=== PATIENT | female | born 1970 | race African-American/Black ===

== ENCOUNTER 2016-12-27 00:40 | Emergency (ER) ==
--- NOTE | 2016-12-27 00:58 | PROVIDER DOCUMENTATION ---
HPI-Headache - General Source: patient - History of Present Illness-Headache Headache Location: reports: temporal Quality of Pain: reports: aching Severity: reports: moderate Onset/Duration: reports: 1 week ago Timing: reports: still present, getting worse Headache Context: reports: nothing Headache History: reports: occasional headaches. denies: frequent headaches, chronic headaches, head trauma < 24 hrs ago, head trauma > 24 hrs ago, history of migraines, other Any recent trauma/injury?: reports: none Headache severity at the maximum: moderate Preceding Symptoms: denies: visual disturbances, scotoma, aura(s), typical of previous aura(s), none Headache Exacerbated by:: reports: light. denies: nothing, noise, movement, position, other Modifying Factors: improves with: nothing Associated Symptoms: reports: denies symptoms. denies: short of breath, headache, decreased ability to walk or stand, fainting, dizziness, confusion, chest pain, neck/back pain, fatigue, fever/chills, insomnia, loss of consciousness, muscle spasms, nausea, numbness in legs/feet, paresthesia, diaphoretic, ringing in ears, seizures, sleepy, slurred speech, tingling in legs /feet, trouble walking, vomiting, vision changes, weakness, other Similar Symptoms Previously?: No Recently seen or treated by another doctor?: No <Alex Arreola - Last Filed: 12/27/16 00:53> <Andrea Tipton - Last Filed: 12/27/16 01:37> - General Source: patient <Valentino Montalvo - Last Filed: 12/27/16 02:12> - General Chief Complaint: Headache Stated Complaint: BOND Time Seen by Provider: 12/27/16 00:53 Allergies/Adverse Reactions: Patient Allergies Allergy/AdvReac Type Severity Reaction Status Date / Time No Known Allergies Allergy Verified 12/27/16 00:51 Home Medications: Home Medication List Medication Instructions Recorded Confirmed Last Taken Type Esomeprazole [Nexium] 40 mg PO QAM 09/09/16 12/27/16 12/26/16 History Ferrous Sulfate [Feosol] 325 mg PO QAM 09/09/16 12/27/16 12/26/16 08:00 History Lisinopril/Hydrochlorothiazide 1 each PO BID 11/12/27/16 12/26/16 08:00 History [Lisinopril-Hctz 20-25 mg Tab] Metoprolol [Lopressor] 50 mg PO BID 09/09/16 12/27/16 12/26/16 08:00 History Potassium Chloride 10 meq PO QAM 09/09/16 12/27/16 12/26/16 08:00 History Tramadol [Ultram] 50 mg PO TID #30 tablet 12/27/16 Unknown Rx - History of Present Illness-Headache Nature of Presenting Problem: Pt c/o headache x 1 week. Pain got worse tonight. No history of migraines. Photosensitivity. Denies any nausea or vomiting. Pain in left temporal area. (Alex Arreola) Review of Systems - Adult - REVIEW OF SYSTEMS - ADULT Constitutional: reports: see HPI. denies: no symptoms reported, chills, fever, fatique, night sweats, weight gain, weight loss, other Eyes: reports: no symptoms reported. denies: see HPI, discharge, dry eyes, decreased vision, blurred vision, double vision, eye pain, redness, other Ears, Nose, Mouth & Throat: reports: no symptoms reported. denies: see HPI, ear discharge, ear pain, hearing loss, tinnitus, epistaxis, sinus problem, nose pain, loose teeth, mouth/dental pain, mouth swelling, hoarseness, throat pain, throat swelling, other Cardiovascular: reports: no symptoms reported. denies: see HPI, chest pain, edema, heart murmur, irregular heart rate, orthopnea, palpitations, poor circulation, PND, syncope, other Respiratory: reports: no symptoms reported. denies: see HPI, chronic cough, cough, dyspnea on exertion, excessive sputum production, hemoptysis, pleurisy, shortness of breath, wheezing, other Gastrointestinal: reports: no symptoms reported. denies: see HPI, abdominal pain, hematemesis, constipation, diarrhea, difficulty swallowing, frequent heartburn, nausea, poor appetite, rectal bleeding, vomiting, other Genitourinary: reports: no symptoms reported. denies: see HPI, dysuria, discharge, frequency, flank pain, frequent UTI's, hematuria, hesitency, incontinence, urinary retention, urgency, other Musculoskeletal: reports: no symptoms reported. denies: see HPI, bone pain, back pain, frequent leg cramps, joint pain, joint swelling, muscle aches, muscle weakness, neck pain, other Integumentary: reports: no symptoms reported. denies: see HPI, hives, hair loss , itching, mole changes, nail changes, rash, skin sores/ulcer, skin thickening, other Neurological: reports: see HPI, headache/migraines. denies: no symptoms reported, ataxia, dizziness/vertigo, loss of balance, numbness, paresthesia, seizure, slurred speech, syncope, tremors, other Psychiatric: reports: no symptoms reported. denies: see HPI, anxiety, anti- depressant use, alcohol/drug dependence, depression, emotional problems, insomnia, panic attacks, suicidal thoughts, other All Other Systems: Reviewed and Negative <Alex Arreola - Last Filed: 12/27/16 00:53> Past History - Adult - PAST MEDICAL HISTORY-ADULT Review of Records: reports: Old Records Reviewed, Nursing Assessment Review, Medications Reviewed, Social history reviewed & non-contributory. Major Childhood Illnesses: reports: denies history Cardiovascular: reports: HTN Respiratory: reports: denies history Gastrointestinal: reports: GERD Obstetrical/Gynecological: reports: denies history Genitourinary: reports: denies history Musculoskeletal: reports: denies history Neurological: reports: denies history Psychiatric: reports: denies history Endocrine/Immune: reports: denies history Other Conditions: reports: denies history - PRIOR SURGERIES/PROCEDURES Surgical/Procedure History: reports: cholecystectomy, - IMMUNIZATION STATUS Childhood Immunizations: See Nurse Assessment Flu Vaccine: See Nurse Assessment - FAMILY HISTORY Family History: CAD under 55yo (mother in her 40s) <Alex Arreola - Last Filed: 12/27/16 00:53> Physical Exam- Neurological - Physical Exam-Neuro Initial Vital Signs Reviewed: Yes General Appearance: appears well, alert, no apparent distress. negative: mild distress, moderate distress, severe distress, cachetic, obese, thin, anxious, lethargic, slow to respond, obtunded, combative, other Eye Exam: bilateral eye: normal inspection, PERRL, EOMI HENMT: normocephalic/atraumatic, moist mucous membranes, normal ENT inspection, TMs normal, pharynx normal. negative: angioedema, dental decay, hearing deficit , pharyngeal erythema, tonsillar exudate, TM abnormal, TM obscurred by cerumen, frontal tenderness, maxillary tenderness, other Head Injury: no evidence of injury. negative: active bleeding, Cuenca's Sign, contusions, ecchymosis, flap, lacerations, raccoon eyes, swelling, tenderness, other Neck: non-tender, full range of motion, supple, normal inspection. negative: Brudzinski's sign, carotid bruit, C-spine tenderness, limited range of motion, lymphadenopathy, meningismus, trachial deviation, tender lateral, tender midline , thyromegaly, other Respiratory: chest non-tender, lungs clear, normal breath sounds, no pleuratic chest pain, no respiratory distress, no accessory muscle use. negative: respiratory distress, decreased breath sounds, accessory muscle use, crackles, rales, rhonchi, stridor, wheezing, dull on percussion, prolonged expiration, pain on inspiration, plerual rub, retractions, splinting, decreased rate, increased rate, crepitus, other Cardiovascular: normal peripheral pulses, regular rate, rhythm, no edema, no gallop, no JVD, no murmur. negative: JVD, bradycardia, tachycardia, diastolic murmur, systolic murmur, gallop/S3, gallop/S4, extra beats, friction rub, irregularly irregular, PMI displaced laterally, other Abdominal Exam: normal bowel sounds, non tender, soft, no organomegaly, no pulsatile mass. negative: abdominal bruit, abnormal bowel sounds, distended, guarding, rigid, rebound, tenderness, hernia, mass, hepatomegaly, spleenomegaly , McBurney's point tenderness, Walker's sign, obturator sign, prominent aortic pulsations, psoas, Rovsing's sign, other Lymphatic: no adenopathy. negative: axilla node tender, cervical node tenderness, inguinal node tender, enlargement, striations, streaking, other Extremity: normal range of motion, non-tender, normal gait, normal inspection, no pedal edema, no calf tenderness, normal capillary refill. negative: pelvis stable, abnormal NV exam, calf tenderness, deformity, erythema, inflammation, joint effusion, pulse deficit, pedal edema, slow capillary refill, swelling, tenderness, other carpenters helper Exam: normal hearing, normal speech, PERRL. negative: abnormal eye position , abnormal gag reflex, abnormal pupil position, abnormal speech, facial asymmetry, facial droop, facial paresthesias, facial weakness, gaze palsy, hearing deficit (R), hearing deficit (L), tongue deviation to R, tongue deviation to L, other Coordination/Gait: normal finger to nose, normal gait. negative: negative Romberg's sign, positive Romberg's sign, abnormal gait, ABN nose to finger (R), ABN nose to finger (L), other Motor/Sensory: no motor deficit, no sensory deficit, no pronator drift, negative Babinski's sign. negative: positive Babinski's sign, pronator drift (R ), pronator drift (L), sensory deficit, weak motor strength RUE, weak motor strength LUE, weak motor strength RLE, weak motor strength LLE, other Neurologic: grossly normal Integumentary: normal color, normal turgor, warm/dry Psych/Mental Status: normal mood/affect, normal thought content, normal thought process, oriented x 3 - Glascow Coma Scale Best Eye Response: (4) open spontaneously Best Verbal Response: (5) oriented Best Motor Response: (6) obeys commands Total Glascow Score: 15 <Alex Arreola - Last Filed: 12/27/16 00:53> Progress - CHANGE OF SHIFT REPORT (ED Provider) Report Given and Care Transferred to:: Dr. Tipton Time of Transfer: 00:57 Tentative Impression of Patient: Migraine <Alex Arreola - Last Filed: 12/27/16 00:53> - EKG 1 Time of EKG reading by physician:: 01:33 EKG Read and Signed by:: Andrea Tipton EKG Interpretation (*Must complete 3 of following elements*): Abnormal Rate: 81 Rhythm: NSR [place]: normal QRS: normal [place] Interval: normal ST Wave: normal Comments: POSSIBLE LEFT ATRIAL ENLARGEMENT. CANNOT RULE OUT ANTERIOR INFARCT. - CT/MRI 1 CT Study: Head CT Results: negative <Valentino Montalvo - Last Filed: 12/27/16 02:12> Departure <Alex Arreola - Last Filed: 12/27/16 00:53> - Departure Time of Disposition Order: 01:50 Certified Medical Emergency: Emergent <Andrea Tipton - Last Filed: 12/27/16 01:37> - Departure Time of Disposition Order: 02:12 Certified Medical Emergency: Emergent <Valentino Montalvo - Last Filed: 12/27/16 02:12> - Departure DIAGNOSIS: HTN (hypertension) with goal to be determined Headache Qualifiers: Headache type: unspecified Headache chronicity pattern: acute headache Intractability: not intractable Qualified Code(s): R51 - Headache Disposition: HOME 01 Condition: Stable Additional Instructions: ED Follow Up Instructions: You have been treated by a care provider in the Emergency Department. These instructions are being provided to you so you can have an understanding of how to care for yourself upon discharge. Upon discharge from the Emergency Department, you are responsible for making arrangements for follow-up care by a physician of your choice. Take all prescribed medications as directed. Return to the Emergency Department immediately for any new or worsening symptoms. You may call the Physician Referral phone number at [phone] to obtain a list of Physicians who are taking new patients. Prescriptions: Tramadol [Ultram] 50 mg PO TID #30 tablet Referrals: [Primary Care Provider] - Forms: Return to School/Parent Work Instructions: Migraine Headache, [id number], Hypertension, [id number] Attestation - Physician/ DANAE Attestation Patient care was provided by Advanced Practice Provider:: Yes Advanced Practice Provider:: Alex Arreola Advanced Practice Provider documentation review:: The Mid-level provider documentation, treatment plan and medical decision making was reviewed by the physician who agrees with all treatment and medical decision making by the MLP. <Alex Arreola - Last Filed: 12/27/16 00:53> Physician Attestation
[2016-12-27] MEDS ORDERED: CATAPRES PO ONE (01:19)
[2016-12-27] MEDS ORDERED: PERCOCET-10 PO ONE (01:19)
[2016-12-27] MEDS ORDERED: ZOFRAN ODT PO ONE (01:19)
[2016-12-27] MEDS ORDERED: TYLENOL PO ONE (01:46)
[2016-12-27 02:21] VITALS: BP 158/86
--- NOTE | 2016-12-27 06:03 | EKG Report ---
Test Performed on : 12/27/2016 01:32:15 AM Test Reason : CP Blood Pressure : / mmHG Vent. Rate : 081 BPM Atrial Rate : 081 BPM P-R Int : 170 ms QRS Dur : 088 ms QT Int : 384 ms P-R-T Axes : 050 018 041 degrees QTc Int : 446 ms Normal sinus rhythm. Possible Left atrial enlargement Cannot rule out Anterior infarct , age undetermined Abnormal ECG When compared with ECG of 06-JUL-2015 01:17, No significant change was found Unconfirmed Result
--- NOTE | 2016-12-27 06:27 | Diag Imaging Result Document ---
PROCEDURE NAME: HEAD W/O CONTRAST - 12/27/2016 CT BRAIN WITHOUT CONTRAST. DOSE REDUCTION PROTOCOL. COMPARISON: 07/07/2011. FINDINGS: No parenchymal hemorrhage. No epidural or subdural hematoma. No subarachnoid hemorrhage. No mass identified on this noncontrasted exam. No hydrocephalus. No sinus opacification. No air fluid levels. IMPRESSION: No hemorrhage. No injury. A preliminary report was given at 2:06 a.m..
== END 2016-12-27 02:19 | disposition home or self-care (01) ==
LOC: ED 00:40
DX: R51 Headache (principal); I10 Essential (primary) hypertension; R94.31 Abnormal electrocardiogram [ECG] [EKG]; K21.9 Gastro-esophageal reflux disease without esophagitis; Z79.899 Other long term (current) drug therapy
CPT/HCPCS: 70450; 82948; 93005

== ENCOUNTER 2017-06-11 08:49 | Observation (INO) ==
[2017-06-11 09:34] LABS: BASO% 0.3 % (0.0-0.8); EOS# 0.02 X1000 (0.0-0.7); EOS% 0.3 % (0.0-10.0); HEMATOCRIT 36.2 % (37.0-47.0); HEMOGLOBIN 12.7 g/dL (12.0-16.0); IMM GRAN# 0.03 X1000 (0.0-0.04); IMM GRAN% 0.4 % (0.0-0.5); LYMPH# 1.64 X1000 (1.2-3.4); LYMPH% 20.8 % (20.5-51.1); MANUAL DIFF NEEDED? NO; MCH 26.2 PG (27-31); MCHC 35.1 g/dL (33-37); MCV 74.6 FL (81-99); MONO# 0.52 X1000 (0.11-0.59); MONO% 6.6 % (1.7-9.3); MPV 9.2 FL (7.4-10.4); NEUT% 71.6 % (42.2-75.2); PLT 308 X1000 (130-400); RBC 4.85 XMIL (4.2-5.4)
[2017-06-11 09:55] LABS: AGAP 17; ALBUMIN 3.7 g/dL (3.5-5.0); ALKALINE PHOSPHATASE 85 U/L (32-104); AMYLASE 39 U/L (20-200); BUN 8 mg/dL (8-22); CALCIUM 9.4 mg/dL (8.8-10.2); CHLORIDE 100 mmol/L (98-107); COSMO 286; GOT 16 U/L (10-30); GPT 13 U/L (10-36); LIPASE 20 U/L (13-60); POTASSIUM 3.5 mmol/L (3.5-5.1); SODIUM 142 mmol/L (136-145); TCO2 25 mmol/L (25-35); TOTAL BILIRUBIN 0.56 mg/dL (0.20-1.00); TOTAL PROTEIN 7.1 g/dL (6.3-8.3)
[2017-06-11] MEDS ORDERED: ZOFRAN IV ONE ×3 (11:44→17:01)
--- NOTE | 2017-06-11 11:47 | PROVIDER DOCUMENTATION ---
HPI-Abdominal Pain/GI Problem - General Chief Complaint: Abdominal Pain Stated Complaint: PAINS IN HER LEFT SIDE Time Seen by Provider: 06/11/17 11:43 Source: patient Allergies/Adverse Reactions: Patient Allergies Allergy/AdvReac Type Severity Reaction Status Date / Time No Known Allergies Allergy Verified 06/11/17 15:31 Home Medications: Home Medication List Medication Instructions Recorded Confirmed Last Taken Type Esomeprazole [Nexium] 40 mg PO QAM 09/09/16 06/11/17 06/10/17 History Ferrous Sulfate [Feosol] 325 mg PO QAM 09/09/16 06/11/17 06/10/17 History Lisinopril/Hydrochlorothiazide 1 each PO BID 09/09/16 06/11/17 06/10/17 History [Lisinopril-Hctz 20-25 mg Tab] Metoprolol [Lopressor] 50 mg PO BID 09/09/16 06/11/17 06/10/17 History Potassium Chloride 20 meq PO QAM 09/09/16 06/11/17 06/10/17 History - History of Present Illness-ABD Nature of Presenting Problems: Patient presents complaining of achy non-radiating LLQ abd pain associated with nausea and vomiting. no diarrhea, fever, melana, vaginal discharge. Onset/Duration: reports: 24 hours ago Timing: reports: still present Activities at Onset: reports: none Exposure to sick contacts?: No Modifying Factors: improves with: nothing Associated Symptoms: reports: nausea, vomiting. denies: anxiety, chest pain, cough, diarrhea, fatigue, headaches, malaise, rash, shortness of breath, syncope , trouble walking Last BM: unsure Dark Stools Present?: reports: none noticed Rectal Bleeding: reports: none Rectal Pain: reports: none Bruising or Bleeding Gums?: No Similar Symptoms Previously?: No Recently seen or treated by another doctor?: No Review of Systems - Adult - REVIEW OF SYSTEMS - ADULT Constitutional: reports: no symptoms reported Eyes: reports: no symptoms reported Ears, Nose, Mouth & Throat: reports: no symptoms reported Cardiovascular: reports: no symptoms reported Respiratory: reports: no symptoms reported Gastrointestinal: reports: see HPI Genitourinary: reports: no symptoms reported Musculoskeletal: reports: no symptoms reported Integumentary: reports: no symptoms reported Neurological: reports: no symptoms reported Psychiatric: reports: no symptoms reported Endocrine: reports: no symptoms reported Hematologic/Lymphatic: reports: no symptoms reported Allergic/Immunologic: reports: no symptoms reported All Other Systems: Reviewed and Negative Past History - Adult - PAST MEDICAL HISTORY-ADULT Review of Records: reports: Old Records Reviewed, Nursing Assessment Review, Medications Reviewed, Social history reviewed & non-contributory. Major Childhood Illnesses: reports: denies history Cardiovascular: reports: HTN Respiratory: reports: asthma Gastrointestinal: reports: GERD Obstetrical/Gynecological: reports: denies history Genitourinary: reports: denies history Musculoskeletal: reports: denies history Neurological: reports: CVA Psychiatric: reports: denies history Endocrine/Immune: reports: denies history Other Conditions: reports: denies history - PRIOR SURGERIES/PROCEDURES Surgical/Procedure History: reports: cholecystectomy, - IMMUNIZATION STATUS Childhood Immunizations: See Nurse Assessment Flu Vaccine: See Nurse Assessment - FAMILY HISTORY Family History: CAD under 55yo (mother in her 40s) - SOCIAL HISTORY Smoking: denies Substance Use: none/never Alcohol Use Frequency: never Living Situation: family Physical Exam-General - PHYSICAL EXAM-ADULT Initial Vital Signs Reviewed: Yes - CONSTITUTIONAL General Appearance: appears well, alert, no apparent distress - EYES Eyes: PERRL/EOMI, pink conjunctivae - HEAD, EARS, NOSE, MOUTH & THROAT HENMT: normocephalic/atraumatic - NECK Neck: supple - RESPIRATORY Respiratory: lungs clear, normal breath sounds - CARDIOVASCULAR Cardiovascular: normal peripheral pulses, regular rate, rhythm - GASTROINTESTINAL (ABDOMEN) Abdominal Exam: normal bowel sounds, soft, tenderness (LLQ. no guarding) - MUSCULOSKELETAL Back Exam: normal inspection Extremity: normal gait - SKIN Integumentary: normal color, normal turgor, warm/dry - NEUROLOGIC Neurologic: grossly normal - PSYCHIATRIC Psych/Mental Status: normal mood/affect, oriented x 3 Progress - PLAN OF CARE/RESULTS Progress/Plan/Lab Results: Vital Signs - 8 hr 06/11/17 09:06 Temperature 98 F Pulse Rate 78 Respiratory Rate 16 Blood Pressure 148/101 O2 Sat by Pulse Oximetry 99 Laboratory Results - last 24 hr 06/11/17 06/11/17 09:19 09:19 WBC 7.87 RBC 4.85 Hgb 12.7 Hct 36.2 L MCV 74.6 L MCH 26.2 L MCHC 35.1 RDW Std Deviation 16.3 H Plt Count 308 MPV 9.2 Immature Gran % (Auto) 0.4 Neut % (Auto) 71.6 Lymph % (Auto) 20.8 [place] % (Auto) 6.6 Eos % (Auto) 0.3 Baso % (Auto) 0.3 Immature Gran # (Auto) 0.03 Neut # (Auto) 5.64 Lymph # (Auto) 1.64 [place] # (Auto) 0.52 Eos # (Auto) 0.02 Baso # (Auto) 0.02 Sodium 142 Potassium 3.5 Chloride 100 Carbon Dioxide 25 Anion Gap 17 BUN 8 Creatinine 0.7 Estimated GFR/1.73 m2 > 60 BUN/Creatinine Ratio 11 Glucose 177 H Calculated Osmolality 286 Calcium 9.4 Total Bilirubin 0.56 AST 16 ALT 13 Alkaline Phosphatase 85 Total Protein 7.1 Albumin 3.7 Globulin 3.4 Albumin/Globulin Ratio 1.1 Amylase 39 Lipase 20 Orders Category Date Time Status Saline Loc NOW Care 06/11/17 11:[address] ABDOMEN/PELVIS W/O CONTRAST [CT] Stat Exams 06/11/17 11:44 Ordered AMYLASE [CHEM] Stat Lab 06/11/17 09:19 Completed CBC WITH ELECTRONIC DIFF [HEME] Stat Lab 06/11/17 09:19 Completed COMPREHENSIVE METABOLIC PANEL [CHEM] Stat Lab 06/11/17 09:19 Completed LIPASE [CHEM] Stat Lab 06/11/17 09:19 Completed TEST-SERUM [PREG] Stat Lab 06/11/17 11:44 Uncollected UA NIMS W/REFLEX CULT [URINALYSIS] Stat Lab 06/11/17 09:13 Uncollected Ondansetron [Zofran] Med 06/11/17 11:44 Discontinued 4 mg IV NOW ONE Result Diagrams: 06/11/17 09:19 06/11/17 09:19 - REASSESSMENT Reassessment #1 Time Reassessed: 17:00 Status: improving (pt feeling better. Will admit to Dr. 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 The possibility of torsion of the left ovary cannot be excluded. No evidence of obstructive uropathy or urolithiasis.) - ULTRASOUND (By Radiology) 1 US Study: Pelvic Impression: See EMR Report (IMPRESSION: Fibroid uterus. Large heterogeneous mass arising from the left adnexal region extending into the abdomen, this is actually much better defined on the CT than the ultrasound. This is consistent with a dermoid teratoma. The lack of internal color Doppler flow would support diagnosis of a torsed left ovarian mass. This possibility has been discussed by telephone with Dr. Taylor.) - CONSULTS/PCP/HOSPITALIST Notification #1 *Consult/PCP/Hospitalist*: Dr. Tim Time Discussed: 16:45 Consult Disposition: other (Does not see senior operations analyst. Call motor vehicle emissions inspector senior operations analyst.) #2 Consult: Dr. Daley Time Discussed: 16:57 Consult Disposition: Admit (admit to [facility]) Departure - Departure Date of Disposition Decision: 06/11/17 Time of Disposition Decision: 16:57 DIAGNOSIS: Ovarian mass, left UTI (urinary tract infection) Qualifiers: Urinary tract infection type: site unspecified Hematuria presence: with hematuria Qualified Code(s): N39.0 - Urinary tract infection, site not specified ; R31.9 - Hematuria, unspecified Disposition: ADMITTED INPATIENT 09 Certified Medical Emergency: Emergent Condition: Stable Referrals and Follow-Ups: None,PCP [Primary Care Provider] - - Critical Care Note This patient required my direct & personal management of CC.: No Attestation - Physician/ DANAE Attestation Patient care was provided by Advanced Practice Provider:: Yes Advanced Practice Provider:: Tyrese Byrd Advanced Practice Provider documentation review:: The Mid-level provider documentation, treatment plan and medical decision making was reviewed by the physician who agrees with all treatment and medical decision making by the [facility]. The physician spent face to face time with patient:: No Advanced Practice Provider documentation review:: Supervising physician onsite and consulted in the evaluation and care of this patient. The physician did not have a face to face encounter with the patient.
--- NOTE | 2017-06-11 13:39 | Diag Imaging Result Doc PS360 ---
EXAM: CT ABDOMEN/PELVIS W/O CONTRAST HISTORY: LLQ abd pain, n/v TECHNIQUE: CT urogram without contrast with dose reduction (clarity.) COMMENT: There are patchy atelectatic appearing opacities throughout the lung bases. This is somewhat worse than on the previous examination of 03/03/2013, however the inspiratory effort appears to be less on the current study. There is no evidence of hydronephrosis or nephrolithiasis. There has been cholecystectomy. The appendix is normal in appearance. There is a large heterogeneous mass apparently arising from the left ovary extending into the abdomen with apparent fatty and dental elements consistent with a dermoid teratoma. This has increased in size from over 9.2 cm at the time the previous examination to over 12.2 cm currently. The larger superior moiety of this mass appears to contain more fluid density than on the previous examination. Given its large size, possibility that this lesion has torsed the ovary should be considered. There is diverticulosis particularly in the descending colon. There is no evidence of active diverticulitis. There is a fairly large amount of stool present in the rectum. No free fluid is present. Some calcifications are present in the right ovary. There is also an area of relative decreased attenuation in the right ovary but this is actually smaller than on the previous study. The small bowel is not distended. 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 The possibility of torsion of the left ovary cannot be excluded. No evidence of obstructive uropathy or urolithiasis. Electronically signed by Brett Guerrero 06/11/2017 1:37 PM
[2017-06-11 15:01] LABS: URINE SOURCE CLEAN CATCH
[2017-06-11 15:05] LABS: BILIRUBIN URINE NEGATIVE (NEGATIVE); BLOOD URINE NEGATIVE (NEGATIVE); COLOR ORANGE; GLUCOSE URINE NEGATIVE (NEGATIVE); LEUKOCYTES URINE TRACE (NEGATIVE); NITRITE URINE NEGATIVE (NEGATIVE); PH URINE 5.5; PROTEIN URINE 70 mg/dL (NEGATIVE); SP GRAVITY URINE 1.024; TURBIDITY URINE TURBID (CLEAR); URINE MICRO REVIEW NEEDED? YES; UROBILINOGEN URINE 2 mg/dL (NORMAL)
[2017-06-11 15:08] LABS: UR EPITHELIAL CELLS <10 /HPF (<10); URINE RBC <10 /HPF (<10); URINE WBC TNTC /HPF (<10)
[2017-06-11 15:16] LABS: URINE CULTURE NEEDED? YES
[2017-06-11 15:17] LABS: URINE CASTS NONE SEEN; URINE CRYSTALS NONE SEEN; URINE SMALL ROUND CELLS NONE SEEN
[2017-06-11 15:23] LABS: URINE BACTERIA 4+ /HPF
--- NOTE | 2017-06-11 15:31 | Diag Imaging Result Doc PS360 ---
EXAM: US PELVIC NON-SCREENING UNIT REGISTERED NURSE COMPLETE HISTORY: LLQ pain, abnormal CT TECHNIQUE: Pelvic ultrasound transabdominal and endovaginal scan COMMENT: The uterus is bulky in appearance with inhomogeneous echotexture and loss of the normal endometrial stripe in the fundus. It measures in total 10.9 x 7.1 x 5.5 cm with a 3 mm endometrial stripe. There is a 3.9 x 3.2 x 2.7 cm myometrial mass posteriorly in the fundus. The right ovary is not well demonstrated measuring 3.7 cm in one dimension. The left ovary is not identified. There is a mass present extending into the abdomen which is only visible on the transabdominal images measuring 15.8 x 17.1 x 9.7 cm with a complex echo pattern. No internal color Doppler flow is demonstrated. There is a tiny amount of free fluid in the cul-de-sac. Compared to the previous study of 12/24/2016 the appearance of the uterus has not changed significantly. IMPRESSION: Fibroid uterus. Large heterogeneous mass arising from the left adnexal region extending into the abdomen, this is actually much better defined on the CT than the ultrasound. This is consistent with a dermoid teratoma. The lack of internal color Doppler flow would support diagnosis of a torsed left ovarian mass. This possibility has been discussed by telephone with Dr. Taylor. Electronically signed by Brett Guerrero 06/11/2017 3:29 PM
[2017-06-11] MEDS ORDERED: DILAUDID IV ONE ×2 (15:56→16:15)
[2017-06-11] MEDS ORDERED: ZOFRAN ONE (15:56)
[2017-06-11] MEDS ORDERED: ROCEPHIN 1 GM in NS 50 ML IV ONE (16:05)
[2017-06-11] MEDS ORDERED: MORPHINE IV PRN (16:59)
[2017-06-11] MEDS ORDERED: NS 1,000 ML IV ONE (16:59)
[2017-06-11] MEDS ORDERED: ZOFRAN IV PRN (16:59)
[2017-06-11] MEDS ORDERED: PHENERGAN IV PRN (20:39)
[2017-06-11] MEDS ORDERED: SODIUM CHLORIDE 0.9% INJ PRN (20:39)
[2017-06-11] MEDS ORDERED: LOPRESSOR PO ONE (20:40)
[2017-06-11] MEDS ORDERED: HYDROCHLOROTHIAZIDE PO ONE (20:41)
[2017-06-11] MEDS ORDERED: PRINIVIL PO ONE (20:41)
[2017-06-11] MEDS ORDERED: SODIUM CHLORIDE 0.9% INJ SCH (21:00)
[2017-06-11] MEDS ORDERED: PROTONIX IV SCH (21:00)
[2017-06-11] MEDS: D5 1/2 NS 1,000 ML IV SCH (21:15)
[2017-06-11] MEDS: DILAUDID IV PRN (21:15)
--- NOTE | 2017-06-11 21:19 | HISTORY AND PHYSICAL ---
HISTORY OF PRESENT ILLNESS: Patient is a 47-year-old, 3, para 2-0-1-2 who presented to the emergency room with complaints of abdominal pain that started this morning. She states the abdominal pain initially started on the left side and then has been radiating throughout the abdomen. She also reports associated nausea and emesis. The patient gives a history of Depo- Provera use for abnormal uterine bleeding with discontinuation in January due to hypertension. She was subsequently started on a p.o. contraception with control of abnormal uterine bleeding; however, the patient unaware as to what medication she was started on. She does report having an in-office endometrial biopsy at her primary [facility] that returned normal. In the emergency room, patient underwent evaluation that was significant for a 14-cm left pelvic mass with concern for possible torsion and no other significant findings. PAST MEDICAL HISTORY: Hypertension. Patient reports history of stroke approximately 5-6 years ago. PAST SURGICAL HISTORY: section x2 and laparoscopic cholecystectomy. OB HISTORY: Term x2. SAB x1. [facility] HISTORY: As above. She reports normal Pap smear in 2017. No history of dysplasia. SOCIAL HISTORY: No tobacco use. PHYSICAL EXAMINATION: VITAL SIGNS: Afebrile, vital signs stable. LUNGS: Respirations nonlabored. ABDOMEN: Soft, nontender and nondistended. EXTREMITIES: Nontender to palpation. IMAGING: CT significant for 14-cm pelvic mass appearing to arise from the left adnexum. Transvaginal ultrasound with limited Doppler flow to the left adnexal. However, ovary unable to be visualized. White blood cells within normal limits. Hematocrit 36. No electrolyte abnormalities. ASSESSMENT/PLAN: A 47-year-old 3 para 2-0-1-2 with 14-cm pelvic mass with concern for torsion. Discussed findings with the patient. Options given of possibly proceeding to the operating room in the near future for left ovarian cystectomy and oophorectomy versus possible left salpingo-oophorectomy and total abdominal hysterectomy given history of abnormal uterine bleeding. We will make nothing per oral after midnight. Continue IV analgesics for pain control, IV antiemetics for nausea. We will continue home medications and re-evaluate patient status in the morning. cc: Freda Suresh MD
[2017-06-12] MEDS: DILAUDID IV PRN ×2 (04:09→08:41)
[2017-06-12] MEDS: D5 1/2 NS 1,000 ML IV SCH (04:09)
[2017-06-12 08:14] VITALS: BP 153/80
== END 2017-06-12 10:45 | disposition home or self-care (01) ==
LOC: P.WC 08:49 → ED 08:49 → P.WC 19:20
PROVIDERS: ADMIT Obstetrics & Gynecology; ATTEND Obstetrics & Gynecology